=== PATIENT | female | born 1940 | race Caucasian/White ===

== ENCOUNTER 2017-06-24 20:22 | Emergency (ER) | payer OTHER ==
[~2017-06-24] VITALS: Ht 157.5 cm; Wt 62.3 kg
[~2017-06-24 20:22] MED LIST: ASPIRIN81 M2 PO; ATORVASTATIN CA40 MG PO; BISOPROLOL-HCT1 EAC2 PO; CALCIUM 500 MG1 EACH PO; FLOMAX0.4 MG PO; LISINOPRIL-HCT1 EACH PO; LOSARTAN POTASS50 MG PO; PANTOPRAZOLE SO40 MG PO; ST. JOSEPH ASPI81 MG PO; TRAZODONE HCL100 MG PO; TYLENOL EXTRA500 MG PO; VICODIN 5-3001 EACH PO; ZOFRAN4 MG PO
[2017-06-24 23:08] LABS: HEMATOCRIT 38.1 % (36.0-46.0); MCH 30.8 PG (29.0-34.0); MCHC 32.5 G/DL (30.0-36.0); MCV 94.8 FL (83-99); MEAN PLAT.VOLUME 9.2 uM^3 (9.5-12.4); PLATELET COUNT 153 K/uL (156-360); RBC DIS.WIDTH-CV 12.6 % (11.8-14.6); RBC DIS.WIDTH-SD 43.8 % (39-53); RED BLOOD COUNT 4.02 M/uL (3.80-5.20); WHITE BLOOD COUNT 6.1 K/uL (4.1-10.2)
[2017-06-24 23:19] LABS: CHLORIDE 106 mEq/L (99-109); POTASSIUM 3.9 mEq/L (3.7-5.4); SODIUM 141 mEq/L (136-147)
[2017-06-24 23:20] LABS: GLUCOSE 98 mg/dL (70-99)
[2017-06-24 23:22] LABS: ANION GAP 8 MEQ/L (2-14)
[2017-06-24 23:24] LABS: GFR ESTIMATE (CALCULATED) > 59 mL/min/
[2017-06-24 23:25] LABS: UREA NITROGEN (BUN) 13 mg/dL (9-23)
[2017-06-25 00:12] VITALS: BP 163/65
== END 2017-06-25 00:14 | disposition home or self-care (01) ==
LOC: EXP 20:22 → EME 20:22 → EXP 06-25 00:14
PROVIDERS: Physician Assistant
DX: R60.0 Localized edema (principal); E78.5 Hyperlipidemia, unspecified; Z87.891 Personal history of nicotine dependence
CPT/HCPCS: 71020; 80048; 83880; 85027; 93971; 99281; 99284

== ENCOUNTER 2017-07-12 07:47 | Emergency (ER) | payer OTHER ==
[~2017-07-12] VITALS: Ht 160 cm; Wt 61.9 kg
[2017-07-12] MEDS ORDERED: PREDNISONE50 MG PO (13:13)
[2017-07-12 13:52] VITALS: BP 115/49
== END 2017-07-12 13:53 | disposition home or self-care (01) ==
LOC: EME 07:47
DX: M76.02 Gluteal tendinitis, left hip (principal); E78.5 Hyperlipidemia, unspecified; I10 Essential (primary) hypertension; Z87.891 Personal history of nicotine dependence
CPT/HCPCS: 73502; 73721; 99281; 99284

== ENCOUNTER 2017-07-31 11:29 | Day surgery (SDC) | payer OTHER ==
[~2017-07-31] VITALS: Ht 160 cm; Wt 60.8 kg
[~2017-07-31 11:29] MED LIST changes: +CYMBALTA30 MG PO; +LYRICA75 MG PO; +PREDNISONE50 MG PO
== END 2017-07-31 13:43 | disposition home or self-care (01) ==
LOC: PAIN 11:29 → SDC 13:00 → PAIN 13:43
DX: M47.26 Other spondylosis with radiculopathy, lumbar region (principal); M51.16 Intervertebral disc disorders with radiculopathy, lumbar region; I10 Essential (primary) hypertension; E78.5 Hyperlipidemia, unspecified; K21.9 Gastro-esophageal reflux disease without esophagitis; I65.29 Occlusion and stenosis of unspecified carotid artery; Z87.891 Personal history of nicotine dependence; Z79.82 Long term (current) use of aspirin; Z79.891 Long term (current) use of opiate analgesic
CPT/HCPCS: J1100; J2250; J3010

== ENCOUNTER 2017-08-14 09:31 | Day surgery (SDC) | payer OTHER ==
[~2017-08-14] VITALS: Ht 160 cm; Wt 60.3 kg
== END 2017-08-14 13:00 | disposition home or self-care (01) ==
LOC: PAIN 09:31 → SDC 10:15 → PAIN 13:00
DX: M47.26 Other spondylosis with radiculopathy, lumbar region (principal); I10 Essential (primary) hypertension; K21.9 Gastro-esophageal reflux disease without esophagitis; I65.29 Occlusion and stenosis of unspecified carotid artery; E78.5 Hyperlipidemia, unspecified; Z85.828 Personal history of other malignant neoplasm of skin; Z79.891 Long term (current) use of opiate analgesic; Z87.891 Personal history of nicotine dependence; Z79.82 Long term (current) use of aspirin
CPT/HCPCS: J1100; J2250; J3010

== ENCOUNTER 2018-02-21 11:40 | Inpatient (IN) | payer OTHER ==
[~2018-02-21] VITALS: Ht 157.5 cm; Wt 65.8 kg
[~2018-02-21 11:40] MED LIST changes: +ATIVAN0.5 MG PO; -ATORVASTATIN CA40 MG PO; +CITRACAL + D E1 EACH PO; +CONZIP100 MG PO; +COZAAR100 MG PO; -CYMBALTA30 MG PO; +CYMBALTA60 MG PO; +LIPITOR40 MG PO; -LOSARTAN POTASS50 MG PO; +NEXIUM 24HR20 M2 PO; +PERCOCET 7.51 TABLET PO
[2018-02-21 12:08] VITALS: BP 154/65
[2018-02-21 20:13] VITALS: BP 174/72
[2018-02-21 23:24] VITALS: BP 119/59
[2018-02-22 03:55] VITALS: BP 101/50
[2018-02-22 08:15] VITALS: BP 100/50
[2018-02-22 11:00] VITALS: BP 140/56
[2018-02-22 16:08] VITALS: BP 117/58
[2018-02-22] MEDS ORDERED: PERCOCET 7.51 TABLET PO (16:38)
[2018-02-22] MEDS ORDERED: TIZANIDINE HCL4 MG PO (16:38)
== END 2018-02-22 18:16 | disposition home or self-care (01) | DRG 460 ==
LOC: SDC 11:40 → ENRESERV 14:49 → SDC 16:17 → ENRESERV 17:43 → 2SOUTH 17:43 → 3EAST 17:43
DX: M48.061 Spinal stenosis, lumbar region without neurogenic claudication (principal); F33.9 Major depressive disorder, recurrent, unspecified; E78.5 Hyperlipidemia, unspecified; I10 Essential (primary) hypertension; K21.9 Gastro-esophageal reflux disease without esophagitis; M41.9 Scoliosis, unspecified; M43.16 Spondylolisthesis, lumbar region; M12.88 Other specific arthropathies, not elsewhere classified, other specified site; M47.26 Other spondylosis with radiculopathy, lumbar region; M85.80 Other specified disorders of bone density and structure, unspecified site; Z79.82 Long term (current) use of aspirin
CPT/HCPCS: 72100; 76000; 86850; 86900; 86901; 94799; C1713; J0131; J0330; J0690; J1100; J1170; J1580; J2405; J2710; J2930; J3010; J3370; J3480; J7643; S0020